=== PATIENT | male | born 1965 | race Caucasian/White ===

== ENCOUNTER 2017-06-06 12:28 | Emergency (ER) | payer OTHER, BC ==
--- NOTE | 2017-06-06 12:52 | EDM.PDOC ---
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 Was able to walk without trouble after this. No LOC. No neck pain or VALDES. No nausea. Reports mild L shoulder pain, mild low back pain, and mild R rastafarian area pain. Declined an offer for pain medicine here in the ER. Onset: Today Onset Date: 06/06/17 Onset Time: 12:00 Duration: Minutes:, Constant Location: Reports: Face, Back (low), Upper Extremity, Left Quality: Reports: Dull Severity: Mild Improves with: Reports: Rest Worsens with: Reports: Movement Context: Reports: Trauma Associated Symptoms: Reports: No Other Symptoms Treatments E D TECH: Reports: Other (see below) (none) - Related Data Allergies Allergy/AdvReac Type Severity Reaction Status Date / Time No Known Allergies Allergy Verified 06/22/15 13:49 Home Meds: Home Meds Albuterol Sulfate [Albuterol Sulfate HFA] 2 puff IH Q4HR PRN 12/31/14 [History] Amoxicillin [Amoxil] 4 cap PO ASDIRECTED PRN 12/31/14 [History] Fluticasone/Salmeterol [Advair 250-50] 1 puff INH BID 12/31/14 [History] Lovastatin [Mevacor] 40 mg PO WDIN 12/31/14 [History] Nitroglycerin [Nitrostat] 0.4 mg SL ASDIRECTED PRN 12/31/14 [History] Esomeprazole [NexIUM] 20 mg PO 0600 06/03/15 [History] Lisinopril 5 mg PO DAILY 06/22/15 [History] Metoprolol Tartrate 50 mg PO BID 06/22/15 [History] Niacin 500 mg PO BIDMEALS 06/22/15 [History] traMADol [Ultram] 50 mg PO QID PRN #60 tablet 06/25/15 [Rx] Acetaminophen [Tylenol Extra Strength] 1,000 mg PO DAILY 02/15/16 [History] Past Medical History Cardiovascular History: Reports: Other (See Below) Other Cardiovascular History: 2 HEART ATTACKS and 08, hyper lipidemia, recent hemothorax Respiratory History: Reports: Asthma, Sleep Apnea Other Respiratory History: Reactive airway disease, hemothorax Gastrointestinal History: Reports: GERD Musculoskeletal History: Reports: Gout Endocrine/Metabolic History: Reports: Diabetes, Type II Hematologic History: Reports: Anemia - Past Surgical History Other Cardiovascular Surgeries/Procedures: Stent placement with first heart attack Endocrine Surgical History: Reports: None Other Musculoskeletal Surgeries/Procedures:: Right (TERESA) Social & Family History - Tobacco Use Smoking Status *Q: Former Smoker Packs/Tins Daily: 5 Used Tobacco, but Quit: Yes Month Tobacco Last Used: May 2006 Second Hand Smoke Exposure: No - Alcohol Use Days Per Week of Alcohol Use: 1 Number of Drinks Per Day: 1 Total Drinks Per Week: 1 - Recreational Drug Use Recreational Drug Use: No Review of Systems - Review of Systems Review Of Systems: See Below Constitutional: Reports: No Symptoms Eyes: Reports: No Symptoms Ears: Reports: No Symptoms Nose: Reports: No Symptoms Mouth/Throat: Reports: No Symptoms Respiratory: Reports: No Symptoms Cardiovascular: Reports: No Symptoms GI/Abdominal: Reports: No Symptoms Genitourinary: Reports: No Symptoms Musculoskeletal: Reports: Shoulder Pain (left), Back Pain (low). Denies: Neck Pain Skin: Reports: Bruising (L knee) Neurological: Reports: No Symptoms Psychiatric: Reports: No Symptoms ED EXAM, GENERAL - Physical Exam Exam: See Below Exam Limited By: No Limitations General Appearance: Alert, WD/WN, No Apparent Distress, Obese Eye Exam: Bilateral Eye: Normal Inspection Ears: Normal External Exam, Normal Canal, Hearing Grossly Normal, Normal TMs Ear Exam: Bilateral Ear: Auricle Normal, Canal Normal, TM normal Nose: Normal Inspection, Normal Mucosa, No Blood Throat/Mouth: Normal Inspection, Normal Lips, Normal Oropharynx, Normal Voice, No Airway Compromise Head: Atraumatic, Normocephalic Neck: Normal Inspection, Supple, Non-Tender Respiratory/Chest: No Respiratory Distress, Lungs Clear, Normal Breath Sounds, No Accessory Muscle Use Cardiovascular: Regular Rate, Rhythm, No Edema GI/Abdominal: Normal Bowel Sounds, Soft, Non-Tender, No Distention Back Exam: Normal Inspection. No: CVA Tenderness (R), CVA Tenderness (L) Extremities: Normal Inspection, Normal Range of Motion, No Pedal Edema, Leg Pain (mild bilateral anterior knee pain with bruising on the left) Neurological: Alert, Oriented, CN II-XII Intact, Normal Gait, No Motor/Sensory Deficits Psychiatric: Normal Affect, Normal Mood Skin Exam: Warm, Dry, Intact, No Rash, Other (bruising of knees L>R) Departure - Departure Time of Disposition: 12:53 Disposition: Home, Self-Care 01 Condition: Good Clinical Impression: Contusion of knee, right Qualifiers: Encounter type: initial encounter Qualified Code(s): S80.01XA - Contusion of right knee, initial encounter Contusion of left knee Qualifiers: Encounter type: initial encounter Qualified Code(s): S80.02XA - Contusion of left knee, initial encounter Scalp contusion Qualifiers: Encounter type: initial encounter Qualified Code(s): S00.03XA - Contusion of scalp, initial encounter Contusion of shoulder, left Qualifiers: Encounter type: initial encounter Qualified Code(s): S40.012A - Contusion of left shoulder, initial encounter Low back strain Qualifiers: Encounter type: initial encounter Qualified Code(s): S39.012A - Strain of muscle, fascia and tendon of lower back, initial encounter - Discharge Information Referrals: Florencio Moreno MD [Primary Care Provider] - Forms: ED Department Discharge Additional Instructions: Acetaminophen as needed for pain relief. Recheck with your provider as needed.
[2017-06-06 13:39] VITALS: BP 140/70
== END 2017-06-06 13:40 | disposition home or self-care (01) ==
LOC: FB.ED 12:28
DX: S39.012A Strain of muscle, fascia and tendon of lower back, initial encounter (principal); S00.03XA Contusion of scalp, initial encounter; S80.02XA Contusion of left knee, initial encounter; S80.01XA Contusion of right knee, initial encounter; S40.012A Contusion of left shoulder, initial encounter; J45.909 Unspecified asthma, uncomplicated; E78.5 Hyperlipidemia, unspecified; K21.9 Gastro-esophageal reflux disease without esophagitis; E11.9 Type 2 diabetes mellitus without complications; Z86.2 Personal history of diseases of the blood and blood-forming organs and certain disorders involving the immune mechanism; Z95.5 Presence of coronary angioplasty implant and graft; Z87.891 Personal history of nicotine dependence; Z79.899 Other long term (current) drug therapy; X58.XXXA Exposure to other specified factors, initial encounter; Y93.89 Activity, other specified
CPT/HCPCS: 36415; 80305; 99284; G0480

== ENCOUNTER 2019-02-27 16:06 | Observation (INO) | payer BC, OTHER ==
[2019-02-27] MEDS ORDERED: Sodium Chloride 0.9% 250 ML IV SCH (16:15)
[2019-02-27] MEDS ORDERED: Furosemide 20 MG/2 ML VIAL IVPUSH SCH (16:16)
[2019-02-27] MEDS ORDERED: GLIPIZIDE 5 MG PO SCH (18:00)
[2019-02-27] MEDS ORDERED: LOVASTATIN 40 MG PO SCH (18:00)
[2019-02-27] MEDS ORDERED: Nitroglycerin 0.4 MG Tab.SL SL PRN (18:41)
[2019-02-27] MEDS ORDERED: diphenhydrAMINE 25 MG Cap PO PRN (18:42)
[2019-02-27] MEDS ORDERED: Albuterol 8 GM Inhaler INH PRN (18:54)
[2019-02-27] MEDS: Ferrous Sulfate 325 MG Tab PO SCH (20:01)
[2019-02-27] MEDS: GABAPENTIN 800 MG PO SCH ×2 (20:08→23:21)
[2019-02-27] MEDS ORDERED: METOPROLOL TARTRATE 100 MG PO SCH (21:00)
[2019-02-27] MEDS ORDERED: Montelukast 10 MG Tab PO SCH (21:00)
[2019-02-27] MEDS: METOPROLOL TARTRATE 100 MG PO SCH (21:14)
[2019-02-27] MEDS: ADVAIR INH SCH ×2 (21:15→21:58)
[2019-02-27] MEDS: Sodium Chloride 0.9% 10 ML Syringe FLUSH PRN (23:40)
[2019-02-28] MEDS ORDERED: OMEPRAZOLE 20 MG PO SCH (07:30)
[2019-02-28] MEDS ORDERED: Sodium Chloride 0.9% 250 ML IV SCH (08:00)
[2019-02-28] MEDS ORDERED: Furosemide 20 MG/2 ML VIAL IVPUSH ONE (08:01)
--- NOTE | 2019-02-28 08:08 | PCM.SURGPN ---
- General Info Date of Service: 02/28/19 Functional Status: Reports: Ambulating, Urinating. Denies: New Symptoms - Review of Systems General: Reports: Other (feels better this am ) Pulmonary: Reports: No Symptoms Cardiovascular: Reports: No Symptoms Gastrointestinal: Reports: No Symptoms - Patient Data Vitals - Most Recent: Last Vital Signs Temp 98.3 F 02/28/19 05:00 Pulse 71 02/28/19 05:00 Resp 18 02/28/19 05:00 BP 107/64 02/28/19 05:00 Pulse Ox 100 02/28/19 05:00 Weight - Most Recent: 148.824 kg I&O - Last 24 Hours: Intake & Output 02/27/19 02/28/19 02/28/19 22:59 06:59 14:59 Intake Total 405 2056 Output Total 2700 625 Balance -2295 1431 Lab Results Last 24 Hrs: Laboratory Results - last 24 hr 02/27/19 02/27/19 02/27/19 Range/Units 16:30 16:30 16:30 WBC 6.7 (4.5-12.0) X10-3/uL RBC 3.29 L (4.30-5.75) x10(6)uL Hgb 5.2 L* (13.5-17.8) g/dL Hct 18.8 L* D (30.0-51.3) % MCV 57.1 L (80-96) fL MCH 15.8 L (27.7-33.6) pg MCHC 27.6 L (32.2-35.4) g/dL RDW 23.4 H (11.5-15.5) % Plt Count 225 (125-369) X10(3)uL MPV 7.9 (7.4-10.4) fL Neut % (Auto) 80.9 (46-82) % Lymph % (Auto) 10.6 L (13-37) % [place] % (Auto) 5.6 (4-12) % Eos % (Auto) 2 (1.0-5.0) % Baso % (Auto) 1 (0-2) % Neut # (Auto) 5.4 (1.6-8.3) # Lymph # (Auto) 0.7 (0.6-5.0) # [place] # (Auto) 0.4 (0.0-1.3) # Eos # (Auto) 0.2 (0.0-0.8) # Baso # (Auto) 0.0 (0.0-0.2) # Sodium 144 (135-145) mmol/L Potassium 4.4 (3.5-5.3) mmol/L Chloride 109 (100-110) mmol/L Carbon Dioxide 21 (21-32) mmol/L BUN 20 H (7-18) mg/dL Creatinine 1.2 (0.70-1.30) mg/dL Est Cr Clr Drug Dosing TNP Estimated GFR (MDRD) > 60 (>60) BUN/Creatinine Ratio 16.7 (9-20) Glucose 80 (80-116) mg/dL Calcium 8.6 (8.6-10.2) mg/dL NT-Pro-B Natriuret Pep 1193 H* (<=125) pg/mL Blood Type Gel Antibody Screen Crossmatch 02/27/19 02/28/19 Range/Units 16:30 05:55 WBC 6.7 (4.5-12.0) X10-3/uL RBC 3.71 L (4.30-5.75) x10(6)uL Hgb 6.4 L* (13.5-17.8) g/dL Hct 22.5 L (30.0-51.3) % MCV 60.7 L (80-96) fL MCH 17.3 L (27.7-33.6) pg MCHC 28.5 L (32.2-35.4) g/dL RDW 27.2 H (11.5-15.5) % Plt Count 200 (125-369) X10(3)uL MPV 7.9 (7.4-10.4) fL Neut % (Auto) 77.3 (46-82) % Lymph % (Auto) 12.4 L (13-37) % [place] % (Auto) 7.1 (4-12) % Eos % (Auto) 3 (1.0-5.0) % Baso % (Auto) 1 (0-2) % Neut # (Auto) 5.2 (1.6-8.3) # Lymph # (Auto) 0.8 (0.6-5.0) # [place] # (Auto) 0.5 (0.0-1.3) # Eos # (Auto) 0.2 (0.0-0.8) # Baso # (Auto) 0.0 (0.0-0.2) # Sodium (135-145) mmol/L Potassium (3.5-5.3) mmol/L Chloride (100-110) mmol/L Carbon Dioxide (21-32) mmol/L BUN (7-18) mg/dL Creatinine (0.70-1.30) mg/dL Est Cr Clr Drug Dosing Estimated GFR (MDRD) (>60) BUN/Creatinine Ratio (9-20) Glucose (80-116) mg/dL Calcium (8.6-10.2) mg/dL NT-Pro-B Natriuret Pep (<=125) pg/mL Blood Type O POSITIVE Gel Antibody Screen Negative Crossmatch See Detail Med Orders - Current: Current Medications Albuterol (Ventolin Hfa) 0 gm INH Q4H PRN PRN Reason: Wheezing Diphenhydramine HCl (Benadryl) 25 mg PO BEDTIME PRN PRN Reason: Sleep Last Admin: 02/27/19 23:25 Dose: 25 mg Ferrous Sulfate (Ferrous Sulfate) 650 mg PO BIDPC [facility] Last Admin: 02/27/19 20:01 Dose: 650 mg Glipizide (Glucotrol) 5 mg PO WITHDINNER [facility] Last Admin: 02/27/19 20:03 Dose: 5 mg Sodium Chloride (Normal Saline) 250 mls @ 100 mls/hr IV ASDIRECTED [facility] Last Admin: 02/27/19 18:31 Dose: 100 mls/hr Sodium Chloride (Normal Saline) 250 mls @ 100 mls/hr IV ASDIRECTED [facility] Liraglutide (Victoza) 1.8 mg SUBCUT DAILY [facility] Lisinopril (Prinivil) 5 mg PO DAILY [facility] Lovastatin (Mevacor) 40 mg PO WITHDINNER [facility] Last Admin: 02/27/19 20:06 Dose: 40 mg Metformin HCl (Glucophage) 1,000 mg PO BIDMEALS [facility] Metoprolol Tartrate (Lopressor) 50 mg PO BID [facility] Last Admin: 02/27/19 21:14 Dose: 50 mg Montelukast Sodium (Singulair) 10 mg PO BEDTIME [facility] Last Admin: 02/27/19 21:13 Dose: Not Given Nitroglycerin (Nitrostat) 0.4 mg SL ASDIRECTED PRN PRN Reason: Chest Pain Canagliflozin [ Invokana] 300 MgPt Own 300 mg PO DAILY [facility] Omeprazole [ Omeprazole] 20 Mg Pt Own 20 mg PO ACBREAKFAST [facility] Patient's Own MedicationAdvair 250/50 Mcg 1 each INH BID [facility] Last Admin: 02/27/19 21:58 Dose: Not Given Patient's Own Medication 1 Each Gabapentin 800 Mg 1 each PO QID [facility] Last Admin: 02/27/19 23:21 Dose: 1 each Sodium Chloride (Saline Flush) 10 ml FLUSH ASDIRECTED PRN PRN Reason: IV Use Last Admin: 02/27/19 23:40 Dose: 10 ml Discontinued Medications Furosemide (Lasix) 20 mg IVPUSH ASDIRECTED [facility] Stop: 02/28/19 04:00 Last Admin: 02/27/19 20:19 Dose: 20 mg Metoprolol Tartrate (Lopressor) 100 mg PO BID [facility] - Exam General: Alert, Oriented, Cooperative Lungs: Clear to Auscultation, Normal Respiratory Effort Cardiovascular: Regular Rate, Regular Rhythm GI/Abdominal Exam: Normal Bowel Sounds, Soft, Non-Tender - Problem List & Annotations (1) Anemia SNOMED Code(s): 721090648 Code(s): D64.9 - ANEMIA, UNSPECIFIED Status: Acute Current Visit: Yes Qualifiers: Anemia type: iron deficiency Iron deficiency anemia type: chronic blood loss Qualified Code(s): D50.0 - Iron deficiency anemia secondary to blood loss (chronic) (2) CHF (congestive heart failure) SNOMED Code(s): 70199372 Code(s): I50.9 - HEART FAILURE, UNSPECIFIED Status: Acute Current Visit: Yes Qualifiers: Heart failure type: unspecified Heart failure chronicity: unspecified Qualified Code(s): I50.9 - Heart failure, unspecified (3) Gastritis SNOMED Code(s): 5294112 Code(s): K29.70 - GASTRITIS, UNSPECIFIED, WITHOUT BLEEDING Status: Acute Current Visit: No Qualifiers: Gastritis type: unspecified gastritis Chronicity: chronic Gastritis bleeding: with bleeding Qualified Code(s): K29.51 - Unspecified chronic gastritis with bleeding - Problem List Review Problem List Initiated/Reviewed/Updated: Yes - My Orders Last 24 Hours: Active Orders 24 hr Category Date Time Status Patient Status [ADT] Routine ADT 02/27/19 16:12 Active Antiembolic Devices [RC] .Routine Care 02/27/19 16:12 Active Height and Weight [RC] 06 Care 02/27/19 16:12 Active Intake and Output [RC] 06,14,22 Care 02/27/19 16:13 Active Notify Provider Vital Signs [RC] ASDIRECTED Care 02/27/19 16:13 Active Pulse Oximetry [RC] PRN Care 02/27/19 16:12 Active Vital Signs [RC] 00,04,08,12,16,20 Care 02/27/19 16:12 Active Regular Diet [DIET] Diet 02/28/19 Dinner Active RED BLOOD CELLS LP [BBK] Routine Lab 02/27/19 16:30 Results TYPE AND SCREEN [BBK] Routine Lab 02/27/19 16:30 Results Albuterol [Ventolin HFA] Med 02/27/19 18:54 Active 0 gm INH Q4H PRN Canagliflozin [Invokana] Med 02/28/19 09:00 Active 300 mg PO DAILY Ferrous Sulfate Med 02/27/19 19:00 Active 650 mg PO BIDPC Furosemide [Lasix] Med 02/28/19 08:01 Once 20 mg IVPUSH ONETIME ONE Liraglutide [Victoza] Med 02/28/19 09:00 Active 1.8 mg SUBCUT DAILY Lisinopril [Prinivil] Med 02/28/19 09:00 Active 5 mg PO DAILY Lovastatin [Mevacor] Med 02/27/19 18:00 Active 40 mg PO WITHDINNER Metoprolol Tartrate [Lopressor] Med 02/27/19 21:00 Active 50 mg PO BID Montelukast [Singulair] Med 02/27/19 21:00 Active 10 mg PO BEDTIME Nitroglycerin [Nitrostat] Med 02/27/19 18:41 Active 0.4 mg SL ASDIRECTED PRN Omeprazole [Omeprazole] Med 02/28/19 07:30 Active 20 mg PO ACBREAKFAST Patient's Own Medication [Ptom] Med 02/27/19 20:00 Active 1 each INH BID Patient's Own Medication [Ptom] Med 02/27/19 17:00 Active 1 each PO QID Sodium Chloride 0.9% [Normal Saline] 250 ml Med 02/27/19 16:15 Active IV ASDIRECTED Sodium Chloride 0.9% [Normal Saline] 250 ml Med 02/28/19 08:00 Ordered IV ASDIRECTED Sodium Chloride 0.9% [Saline Flush] Med 02/27/19 16:30 Active 10 ml FLUSH ASDIRECTED PRN diphenhydrAMINE [Benadryl] Med 02/27/19 18:42 Active 25 mg PO BEDTIME PRN glipiZIDE [Glucotrol] Med 02/27/19 18:00 Active 5 mg PO WITHDINNER metFORMIN [Glucophage] Med 02/28/19 08:00 Active 1,000 mg PO BIDMEALS DVT/VTE Prophylaxis Reflex [OM.PC] Per Unit Routine Oth 02/27/19 16:12 Ordered Transfuse RBC [Transfuse Red Blood Cells] [COMM] Ot 02/27/19 16:14 Ordered Routine Transfuse RBC [Transfuse Red Blood Cells] [COMM] Ot 02/28/19 08:00 Ordered Routine Resuscitation Status Routine Resus Stat 02/27/19 16:12 Ordered Medication Orders Albuterol (Ventolin Hfa) 0 gm INH Q4H PRN PRN Reason: Wheezing Diphenhydramine HCl (Benadryl) 25 mg PO BEDTIME PRN PRN Reason: Sleep Last Admin: 02/27/19 23:25 Dose: 25 mg [facility] Last Admin: 02/27/19 20:01 Dose: 650 mg Glipizide (Glucotrol) 5 mg PO WITHDINNER [facility] Last Admin: 02/27/19 20:03 Dose: 5 mg Sodium Chloride (Normal Saline) 250 mls @ 100 mls/hr IV ASDIRECTED [facility] Last Admin: 02/27/19 18:31 Dose: 100 mls/hr Sodium Chloride (Normal Saline) 250 mls @ 100 mls/hr IV ASDIRECTED [facility] Liraglutide (Victoza) 1.8 mg SUBCUT DAILY [facility] Lisinopril (Prinivil) 5 mg PO DAILY [facility] Lovastatin (Mevacor) 40 mg PO WITHDINNER [facility] Last Admin: 02/27/19 20:06 Dose: 40 mg Metformin HCl (Glucophage) 1,000 mg PO BIDMEALS [facility] Metoprolol Tartrate (Lopressor) 50 mg PO BID [facility] Last Admin: 02/27/19 21:14 Dose: 50 mg Montelukast Sodium (Singulair) 10 mg PO BEDTIME [facility] Last Admin: 02/27/19 21:13 Dose: Not Given Nitroglycerin (Nitrostat) 0.4 mg SL ASDIRECTED PRN PRN Reason: Chest Pain Canagliflozin [ Invokana] 300 MgPt Own 300 mg PO DAILY [facility] Omeprazole [ Omeprazole] 20 Mg Pt Own 20 mg PO ACBREAKFAST [facility] Patient's Own MedicationAdvair 250/50 Mcg 1 each INH BID [facility] Last Admin: 02/27/19 21:58 Dose: Not Given Admin: 02/27/19 21:15 Dose: 1 each Patient's Own Medication 1 Each Gabapentin 800 Mg 1 each PO QID [facility] Last Admin: 02/27/19 23:21 Dose: 1 each Admin: 02/27/19 20:08 Dose: 1 each Sodium Chloride (Saline Flush) 10 ml FLUSH ASDIRECTED PRN PRN Reason: IV Use Last Admin: 02/27/19 23:40 Dose: 10 ml - Assessment Assessment (Free Text/Narrative):: Hgb still below 7 will give an additional unit this am due to heart condition. Will additional lasix as he is down 4 lbs. anticipate d/c later this today. EGD next week. He will follow up on Sunday with me. will need an echocardiogram will recheck bnp bmp this am
[2019-02-28] MEDS ORDERED: Pantoprazole 40 MG Tab.CR PO SCH ×2 (08:30→21:00)
[2019-02-28] MEDS ORDERED: Lisinopril 5 MG Tab *PTOM PO SCH (09:00)
[2019-02-28] MEDS ORDERED: CANAGLIFLOZIN 300 MG PO SCH (09:00)
[2019-02-28] MEDS: Ferrous Sulfate 325 MG Tab PO SCH (09:59)
[2019-02-28] MEDS: ADVAIR INH SCH (10:04)
[2019-02-28] MEDS: GABAPENTIN 800 MG PO SCH (10:04)
[2019-02-28] MEDS: METOPROLOL TARTRATE 100 MG PO SCH (10:05)
[2019-02-28] MEDS: Sodium Chloride 0.9% 10 ML Syringe FLUSH PRN ×2 (10:21→11:51)
[2019-02-28 11:42] VITALS: BP 125/75; PULSE 70
--- NOTE | 2019-02-28 11:46 | PCM.SN ---
- Free Text/Narrative Note: No issues with third unit. will dc with response with lasix will dc on 20 mg qd. will follow up on Sunday.
[2019-02-28] MEDS ORDERED: Liraglutide (rDNA Origin) 0.6 MG/0.1 ML 3 ML Pen SUBCUT SCH (21:00)
== END 2019-02-28 13:22 | disposition home or self-care (01) ==
LOC: FB.MS 16:06
PROVIDERS: ADMIT Surgery; ATTEND Surgery
DX: D50.0 Iron deficiency anemia secondary to blood loss (chronic) (principal); K29.51 Unspecified chronic gastritis with bleeding; K29.91 Gastroduodenitis, unspecified, with bleeding; I25.9 Chronic ischemic heart disease, unspecified; I50.9 Heart failure, unspecified; E11.9 Type 2 diabetes mellitus without complications; E78.2 Mixed hyperlipidemia; J44.9 Chronic obstructive pulmonary disease, unspecified; G47.33 Obstructive sleep apnea (adult) (pediatric); M54.9 Dorsalgia, unspecified; Z79.51 Long term (current) use of inhaled steroids; Z79.82 Long term (current) use of aspirin; Z79.1 Long term (current) use of non-steroidal anti-inflammatories (NSAID); Z79.4 Long term (current) use of insulin; Z79.899 Other long term (current) drug therapy
CPT/HCPCS: 36415; 36430; 80048; 83880; 85025; 86850; 86900; 86901; 86920; 86922; 96361; 96374; 96376; A9270; G0378; J1940; J7050; P9016

== ENCOUNTER 2019-03-05 06:56 | Day surgery (SDC) | payer OTHER ==
[2019-03-05] MEDS ORDERED: Propofol 200 MG/20 ML SDV IV ONE (06:57)
[2019-03-05] MEDS ORDERED: Lactated Ringers 1,000 ML IV SCH (09:00)
--- NOTE | 2019-03-05 10:47 | PCM.OPNOTE ---
- General Post-Op/Procedure Note Date of Surgery/Procedure: 03/05/19 Operative Procedure(s): egd with bx Findings: ? duodenal polyp gastritis Pre Op Diagnosis: Fe def anemia. hx of gastritis Post-Op Diagnosis: ? duodenal polyp. gastritis Anesthesia Technique: CHANDAN Primary Surgeon: Carlos Parker Anesthesia Provider: Gurvinder Holt Pathology: stomach and duodenum Complications: None Condition: Good Free Text/Narrative:: see dictation
[2019-03-05 11:50] VITALS: BP 148/91; PULSE 72
--- NOTE | 2019-03-05 11:50 | OR ---
DATE OF OPERATION: 03/05/2019 SURGEON: Carlos Parker MD PROCEDURE PERFORMED: Esophagogastroduodenoscopy with cold forceps biopsy. PREOPERATIVE DIAGNOSIS: History of iron deficiency anemia. POSTOPERATIVE DIAGNOSIS: Questionable duodenal polyp and gastritis. INDICATIONS FOR PROCEDURE: This is a 53-year-old white male, recently he was noted to have a hemoglobin of 5.3, underwent a 3-unit transfusion. Has a known history of gastritis in the past. Last colonoscopy was essentially unremarkable. Therefore, offered and accepted an upper endoscopy. DESCRIPTION OF OPERATION: After an excellent IV sedation was administered, the bite block was inserted. Flexible endoscope was passed without difficulty down the patient's esophagus into the stomach. Stomach was insufflated. Scope passed through the pylorus, second portion of the duodenum and slowly withdrawn. Following findings were noted. In the duodenum, just beyond the pylorus, there was an area that looked like it could possibly be a polyp versus a very prominent fold, not normally noted in this area. Multiple biopsies were taken. The tissue was noted to be friable. Photo was taken as well. Stomach demonstrated some diffuse mild gastritis, especially in the area of the antrum. Biopsies were taken. Esophagus was essentially unremarkable. Some inflammation was noted in the area of the larynx and vocal cords. Otherwise, no obvious source of bleeding was noted. The patient tolerated the procedure well. I will have him follow up in our clinic in about 7 days. /[id number] /ADRIENNEL
== END 2019-03-05 11:45 | disposition home or self-care (01) ==
LOC: FB.SDS 06:56
PROVIDERS: ATTEND Surgery
DX: K29.50 Unspecified chronic gastritis without bleeding (principal); K31.7 Polyp of stomach and duodenum; D50.0 Iron deficiency anemia secondary to blood loss (chronic); K31.89 Other diseases of stomach and duodenum; K21.9 Gastro-esophageal reflux disease without esophagitis; J38.3 Other diseases of vocal cords; I25.10 Atherosclerotic heart disease of native coronary artery without angina pectoris; I25.9 Chronic ischemic heart disease, unspecified; I25.2 Old myocardial infarction; I50.9 Heart failure, unspecified; E11.9 Type 2 diabetes mellitus without complications; E78.2 Mixed hyperlipidemia; J44.9 Chronic obstructive pulmonary disease, unspecified; I48.92 Unspecified atrial flutter; E78.00 Pure hypercholesterolemia, unspecified; E66.9 Obesity, unspecified; G47.33 Obstructive sleep apnea (adult) (pediatric); Z68.42 Body mass index [BMI] 45.0-49.9, adult; Z79.1 Long term (current) use of non-steroidal anti-inflammatories (NSAID); Z79.82 Long term (current) use of aspirin; Z79.84 Long term (current) use of oral hypoglycemic drugs; Z79.899 Other long term (current) drug therapy
CPT/HCPCS: 43239; 82962; J2704; J7120; 88305; 88342

== ENCOUNTER 2020-06-16 07:02 | Day surgery (SDC) | payer OTHER ==
[2020-06-16] MEDS ORDERED: Lidocaine 2% 5 ML SDV INJECT ONE (07:03)
[2020-06-16] MEDS ORDERED: Propofol 200 MG/20 ML SDV IV ONE (07:03)
[2020-06-16] MEDS ORDERED: Ketamine 500 mg/10 ML MDV IV ONE (07:03)
[2020-06-16] MEDS ORDERED: Midazolam 1 MG/ML 2 ML SDV IV ONE (07:03)
[2020-06-16] MEDS ORDERED: Lactated Ringers 1,000 ML IV SCH (07:30)
[2020-06-16] MEDS ORDERED: Sodium Chloride 0.9% 10 ML Syringe FLUSH PRN (07:30)
--- NOTE | 2020-06-16 09:46 | PCM.OPNOTE ---
- General Post-Op/Procedure Note Date of Surgery/Procedure: 06/16/20 Operative Procedure(s): egd. cscope Findings: mild gastritis diverticulosis of colon Pre Op Diagnosis: anemia. heme + stools Post-Op Diagnosis: mild gastritis. diverticulosis of colon Anesthesia Technique: MAC Primary Surgeon: Carlos Parker Anesthesia Provider: Yomaira Oneill Pathology: none Complications: None Condition: Good Free Text/Narrative:: see dictation [id number]
[2020-06-16 10:50] VITALS: PULSE 66
[2020-06-16 10:51] VITALS: BP 118/65
--- NOTE | 2020-06-16 13:11 | OR ---
DATE OF OPERATION: 06/16/2020 SURGEON: Carlos Parker MD PROCEDURE PERFORMED: EGD and colonoscopy. PREOPERATIVE DIAGNOSIS: History of anemia as well as gastritis. POSTOPERATIVE DIAGNOSIS: Gastritis and sigmoid diverticulosis. INDICATIONS FOR PROCEDURE: Mr. 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 He has required iron supplementation. It has essentially been brought under control with a proton pump inhibitor. Recently, he noted some fatigue. Subsequent workup demonstrated anemia which required blood transfusion. He has had absolutely no epigastric or abdominal discomfort. No significant change in bowel habits. No overt bleeding, nausea, or vomiting. He was offered and accepted an upper and lower endoscopy to try to delineate an etiology for his anemia and one of his occult stool blood tests were positive. DESCRIPTION OF PROCEDURE: After an excellent IV sedation was administered, the bite block was inserted. Flexible endoscope was passed without difficulty down the patient's esophagus into the stomach. Stomach was insufflated. Scope passed through the pylorus, second portion of the duodenum, and slowly withdrawn. The following findings were noted: The duodenal was unremarkable. Stomach, no marked abnormality. No marked overt cause of any bleeding. He does have a small hiatal hernia. The GE junction did measure about 35 cm into the chest. There was maybe some very mild erythema involving the rugae. This did not even appear to be pronounced enough to warrant biopsy. The esophagus was unremarkable. There was no evidence of anything that would cause a GI bleed requiring transfusion. The stomach was deflated, and the scope was removed. Our attention was then turned to the patient's colon. Digital rectal exam was performed. No marked abnormality was noted. The flexible colonoscope was inserted and advanced to the cecum without difficulty. The prep was excellent. The following findings were noted: Ascending colon, unremarkable. Transverse colon, unremarkable. Descending colon, occasional diverticula. Sigmoid, occasional diverticula. Rectum and anus, unremarkable. On retroflexing the scope, there was no evidence of any overt hemorrhoid disease to explain his bleeding. The colon was deflated. Scope was removed. The patient tolerated the procedure well. We will be obtaining a capsule endoscopy to complete the workup for the GI tract. /[id number] /MODL
== END 2020-06-16 10:32 | disposition home or self-care (01) ==
LOC: FB.SDS 07:02
PROVIDERS: ATTEND Surgery
DX: K57.30 Diverticulosis of large intestine without perforation or abscess without bleeding (principal); K29.70 Gastritis, unspecified, without bleeding; K44.9 Diaphragmatic hernia without obstruction or gangrene; D50.0 Iron deficiency anemia secondary to blood loss (chronic); J44.9 Chronic obstructive pulmonary disease, unspecified; E66.9 Obesity, unspecified; G47.33 Obstructive sleep apnea (adult) (pediatric); I25.2 Old myocardial infarction; E11.9 Type 2 diabetes mellitus without complications; E78.2 Mixed hyperlipidemia; Z79.899 Other long term (current) drug therapy; Z88.8 Allergy status to other drugs, medicaments and biological substances; Z98.890 Other specified postprocedural states; Z68.42 Body mass index [BMI] 45.0-49.9, adult; Z79.4 Long term (current) use of insulin
CPT/HCPCS: 00813; 43235; 45378; 82962; J2001; J2250; J2704; J7120

== ENCOUNTER 2025-02-27 06:12 | Day surgery (SDC) | payer BC, OTHER ==
[2025-02-27] MEDS ORDERED: Propofol 200 MG/20 ML SDV IV ONE (06:13)
[2025-02-27] MEDS ORDERED: Midazolam 1 MG/ML 2 ML SDV IV ONE (06:13)
[2025-02-27] MEDS ORDERED: Ketamine 500 mg/10 ML MDV IV ONE (06:13)
[2025-02-27] MEDS ORDERED: Sodium Chloride 0.9% 10 ML Syringe FLUSH PRN (06:15)
[2025-02-27] MEDS: Lactated Ringers 1,000 ML IV SCH (06:56)
[2025-02-27 09:32] VITALS: BP 124/76; PULSE 60
== END 2025-02-27 09:10 | disposition home or self-care (01) ==
LOC: FB.SDS 06:12
PROVIDERS: ATTEND Surgery
DX: Z12.11 Encounter for screening for malignant neoplasm of colon (principal); K57.30 Diverticulosis of large intestine without perforation or abscess without bleeding; K62.89 Other specified diseases of anus and rectum; E66.01 Morbid (severe) obesity due to excess calories; E11.9 Type 2 diabetes mellitus without complications; Z80.0 Family history of malignant neoplasm of digestive organs; Z88.8 Allergy status to other drugs, medicaments and biological substances; Z79.84 Long term (current) use of oral hypoglycemic drugs; Z68.41 Body mass index [BMI] 40.0-44.9, adult; Z87.891 Personal history of nicotine dependence; Z86.0101 Personal history of adenomatous and serrated colon polyps; Z79.899 Other long term (current) drug therapy
CPT/HCPCS: 00811; A9270-GY; J2003; J2250; J2704; J3490; J7120